=== PATIENT | male | born 1955 | race Caucasian/White ===

== ENCOUNTER → 2018-01-06 11:03 | Outpatient (CLI) | payer BC | END | disposition home or self-care (01) | LOC: D.MRI 11:03 | DX: R22.32 Localized swelling, mass and lump, left upper limb (principal) ==

== ENCOUNTER → 2018-08-10 12:30 | Outpatient (CLI) | payer BC | END | disposition home or self-care (01) | LOC: D.MRI 12:30 | PROVIDERS: ATTEND Orthopaedic Surgery | DX: M25.561 Pain in right knee (principal) ==

== ENCOUNTER 2018-09-20 06:34 | Day surgery (SDC) | payer BC ==
[~2018-09-20] VITALS: Ht 167.6 cm; Wt 94.8 kg
[2018-09-20 07:05] LABS: HEMATOCRIT 42.3 % (42.0-54.0); HEMOGLOBIN 14.8 g/dL (13.5-17.5); MCH 31.2 pg (26.0-34.0); MCV 89.1 fL (80.0-100.0); MEAN PLATELET VOLUME 10.5 fL (7.4-10.4); RBC 4.75 10x6/uL (4.20-6.10); RDW 11.8 % (11.5-14.5); WBC 7.1 10x3/uL (4.8-10.8)
[2018-09-20] MEDS ORDERED: LOSARTAN/HCTZ PO (07:33)
[2018-09-20] MEDS ORDERED: TRAZODONE TAB 100 (07:33)
[2018-09-20] MEDS ORDERED: LIPITOR20 MG PO (07:34)
[2018-09-20 07:36] VITALS: BP 112/71; Ht 167.6 cm; Wt 94.8 kg
[2018-09-20] MEDS ORDERED: HYDROCODON-ACE1 EAC7 PO (09:49)
--- NOTE | 2018-09-20 12:06 | NUR ---
1200 IV REMOVED AND INSTRUCTIONS GIVEN
--- NOTE | 2018-09-20 12:55 | OP ---
PATIENT NAME: LUIZA GRACIA MEDICAL RECORD: [id number] :55 [facility] [place] ADMISSION DATE: SURGEON: NAKITA GARNICA MD DATE OF OPERATION: 09/20/2018 SURGEON: Nakita Garnica MD PREOPERATIVE DIAGNOSIS: Left thigh lipoma. POSTOPERATIVE DIAGNOSIS: Left thigh lipoma. PROCEDURE PERFORMED: Excisional biopsy of left thigh lipoma, 5 x 4 x 5 cm. ANESTHESIA: General. COMPLICATIONS: None. SPECIMENS: Lipoma 5 x 4 x 5 cm from left thigh. Wound class was clean. OPERATIVE COURSE: After consent was obtained, the patient was taken to the operating room and placed in supine position on the operating table. Next, general anesthesia was given via endotracheal intubation after a timeout was performed to confirm the correct patient and procedure. The left thigh and groin were prepped and draped in a typical sterile fashion. Then, 20 cc of local anesthetic were injected into the left thigh. A circumferential incision was made over the area of soft tissue mass with a 15-blade scalpel. Dissection continued to the subcutaneous tissue staying around the outside of the capsule of the lipoma. The lipoma was excised using combination of electrocautery and Metzenbaum scissor dissection with the lipoma and capsule intact. The specimen was 5 x 4 x 5 cm. It was passed off this field and sent for permanent pathology. The wound was copiously irrigated. The wound was closed in multiple layers, deep subcutaneous tissue was closed with 3-0 Vicryl suture, superficial subcutaneous suture was closed with 3-0 Vicryl suture. The skin was closed with 4-0 Monocryl in a subcuticular fashion. Skin was reinforced with Mastisol and Steri-Strips. At the end of the case, all needle and instrument counts were correct. No complications occurred. The patient was extubated and transferred to PACU in stable condition. TRANSINT:[id number] Voice Confirmation ID: [id number] DOCUMENT ID: [id number] NAKITA GARNICA MD at 1255 CC: [id number] DICTATION DATE: 09/20/18 0952 DIRECTOR OF FIELD SALES: 09/20/18 1054 [facility] 09/20/18 [place] [address]
== END 2018-09-20 12:24 | disposition home or self-care (01) ==
LOC: D.OPS 06:34 → D.PAN 09:00 → D.OPS 09:00
PROVIDERS: Anesthesiology; ATTEND Surgery
DX: D17.24 Benign lipomatous neoplasm of skin and subcutaneous tissue of left leg (principal)